=== PATIENT | male | born 1980 | race Hispanic/Latino ===

== ENCOUNTER 2021-03-23 06:12 | Inpatient (IN) | payer OTHER, SELFPAY ==
[2021-03-23] VITALS (13 sets, daily range): BP systolic 125–138; BP diastolic 74–94; PULSE 83–98; RESP 16–34; TEMP 36.1–37.5; O2SAT 90–97; BMI 59.1
--- NOTE | ~2021-03-23 | XR_ITS ---
EXAMINATION: XR chest 1V portable INDICATION: COVID 19 pneumonia TECHNIQUE: Portable AP chest at 0954 hours COMPARISON: 03/23/2021 FINDINGS: Cardiomegaly is noted. Diffuse opacities persist throughout all lung zones with slight impr ovement in the right upper lung zone. No definite pleural effusion or pneumothorax is identified. IMPRESSION: 1. Diffuse lung disease with mild interval improvement in the right upper lung zone, consistent with pneumonia and/or pulmonary edema and/or acute respiratory distress syndrome (ARDS). Reviewed, dictated and finalized at location A.
--- NOTE | ~2021-03-23 | XR_ITS ---
XR chest 1V portable 03/28/2021 05:44 Indication: Covid Infection. Dyspnea. Procedure: AP portable chest Comparison: 03/25/2021 Findings: Patchy ill-defined bilateral infiltrates. No pleural effusion. No pneumothorax. Heart size normal. No acute osseous abnormality. Impression: 1: Patchy bilateral infiltrates, consistent with pneumonia. Reviewed, dictated and finalized at location A. Impression: 1: Patchy bilateral infiltrates, consistent with pneumonia.
--- NOTE | ~2021-03-23 | XR_ITS ---
EXAMINATION: XR chest 1V portable INDICATION: Cough and fever TECHNIQUE: Portable AP chest at 0742 hours COMPARISON: None FINDINGS: There are diffuse airspace opacities throughout all lung zones, right greater than left. No definite pleural effusion or pneumothorax is identified. The heart size is normal. IMPRESSION: 1. Diffuse lung disease, consistent with pneumonia and/or pulmonary edema. Reviewed, dictated and finalized at location A.
--- NOTE | 2021-03-23 06:28 | PC.NURSE ---
Please call [facility] with updates [phone]
[2021-03-23 07:12] LABS: Hematocrit 41.5 % (42.0-52.0); Hemoglobin 13.3 g/dL (14.0-18.0); Mean Corpuscular Hemoglobin 28.5 pg (26-34); Mean Corpuscular Volume 88.9 fl (80-100); Mean Platelet Volume 11.2 fl (7.4-10.4); Platelet Count Result 252 k/mm3 (150-375); Red Blood Count 4.67 M/mm3 (4.6-6.20); Red Cell Distribution Width 15.8 % (11.5-14.5); White Blood Count 9.8 K/mm3 (4.5-10.0)
[2021-03-23] MEDS: SODIUM CHLORIDE 0.9% IV 1,000 ML 999 ML IV CONT (07:23)
[2021-03-23 07:25] LABS: Alanine Aminotransferase 59 U/L (4-50); Albumin Level 3.8 g/dL (3.5-5.1); Alkaline Phosphatase 57 U/L (38-126); Anion Gap 2 mmol/L (8-16); Aspartate Amino Transferase 56 U/L (17-59); Bilirubin,Total 0.9 mg/dL (0.2-1.3); Blood Urea Nitrogen 15 mg/dL (9-20); Calcium 8.2 mg/dL (8.4-10.2); Carbon Dioxide 36 mmol/L (22-30); Chloride 93 mmol/L (98-107); Estimated Glomerular Filt Rate > 60; Glucose 289 mg/dL (75-110); Potassium 4.7 mmol/L (3.4-5.0); Sodium 131 mmol/L (137-145)
[2021-03-23 07:27] LABS: Alveolar/Arterial O2 Gradient 111.5 mmHg; Base Excess ABG 3.2 mEq/l (+/-2.0); Fractional Inspired Oxygen 36 %; HCO3 ABG 30.1 mEq/l (22.0-26.0); Oxygen Saturation ABG 95.2 % (95.0-100.0); Oxyhemoglobin 93.4 % THb (90.0-100.0); PCO2 ABG 55.7 mmHg (35.0-45.0); PO2 ABG 80.6 mmHg (80.0-100.0); PO2 FiO2 Ratio Arterial Blood 2.24 %; Total Hemoglobin 13.7 g/dL (12.0-18.0); pH ABG 7.351 (7.350-7.450)
[2021-03-23 07:28] LABS: Device NASAL CANNULA; Modified Allen's Test Pass; Site Drawn LEFT RADIAL
[2021-03-23 07:37] LABS: INR 1.1; Prothrombin Time 14.4 Seconds (11.1-14.7)
[2021-03-23 07:38] LABS: Partial Thromboplastin Time 34.9 SECONDS (22.3-36.8)
[2021-03-23 07:45] LABS: Band Neutrophils Percent 11 % (0-6); Lymphocytes Absolute Manual 1.27 K/mm3 (1.1-4.5); Monocytes Absolute Manual 0.49 K/mm3 (0.1-0.90); Monocytes Percent Manual 5 % (3-9); Neutrophils Absolute Manual 8.03 K/mm3 (1.3-6.7); Neutrophils Percent Manual 71 % (46-73); Platelet Estimate Adequate (Adequate); Total Cells Counted 100
[2021-03-23 07:46] LABS: Atypical Lymphocytes Present
[2021-03-23 07:48] LABS: CRP 13.7 mg/dL (<1.0)
--- NOTE | 2021-03-23 07:54 | ED.FEVER ---
HPI - Fever General Chief Complaint: Fever Stated Complaint: fever Time Seen by Provider: 03/23/21 07:00 History of Present Illness HPI Narrative: Patient is a 41-year-old male who presents ER with fevers and chills. Ongoing over the last week and worsening over the last day. Feels very fatigued with walking. He has had a dry nonproductive cough. He works at a restaurant. Denies sick contacts. Patient reports he typically is sweaty but has been very diaphoretic over the last few days. He is not taking medications. He does not go to doctors so he does not have any medical issues. Patient found to be hypoxic on arrival and placed on supplemental oxygen. Related Data Home Medications Medication Instructions Recorded Confirmed No Home Medications 03/23/21 03/23/21 Allergies Allergy/AdvReac Type Severity Reaction Status Date / Time No Known Allergies Allergy Verified 03/23/21 09:51 Review of Systems Review of Systems: All systems reviewed & are unremarkable except as noted in HPI and below Constitutional: Constitutional: Reports chills, Reports fatigue and Reports fever(s) ENT: Denies nasal congestion and Denies sore throat Cardiovascular: Cardiovascular: Denies chest pain and Denies radiating jaw, neck or arm pain Respiratory: Respiratory: Denies chest congestion, Reports cough and Reports dyspnea Gastrointestinal: Gastrointestinal: Denies abdominal pain, Denies nausea and Denies vomiting PMF Past Medical History Medical History (Updated 03/23/21 @ 17:13 by Srikanth Ackerman MD) New onset type 2 diabetes mellitus (~03/23/21) Surgical History Surgical History No history of previous surgery Family History Family History Grandparent Diabetes mellitus Social History Social History (Updated 03/23/21 @ 13:03 by Tata Cage PA-C) Social History: Surrogate decision maker: Lori Sweeney, . Code status: Full code. Smoking status: Never smoker Alcohol intake: never Substance use: never Additional living arrangements comments: Patient lives in [place] with his . Additional occupation/education comments: Works at a local restaurant. Gender identity (if verbalized by the patient): Male Sexual Orientation (if Verbalized by the Patient): Straight or Heterosexual Spiritual care concerns: No Exam Narrative: Exam Narrative: GENERAL: Ill-appearing, morbidly obese, diaphoretic. HEAD: Normocephalic, atraumatic. EYES: PERRL and EOMI. ENT: Mucous membranes moist. CHEST: Clear to auscultation. No respiratory distress. HEART: Regular rate and rhythm. Normal peripheral pulses. ABDOMEN: Soft, nontender, nondistended. EXTREMITIES: Normal range of motion. No edema. NEURO: Alert and oriented x3. PSYCH: Normal mood and affect. Course SUPPORT SERVICES TECH/PA Physician Supervision Patient informed of results and severity of illness. Admit to hospitalist service. IV antibiotics and Decadron ordered. Vital Signs Vital signs: Vital Signs Respiratory Rate 34 H 03/23/21 06:34 Pulse Oximetry 97 03/23/21 06:34 Temperature 98.9 F 03/23/21 12:00 Pulse Rate 83 03/23/21 12:00 Respiratory Rate 30 H 03/23/21 12:00 Blood Pressure 138/78 03/23/21 12:00 Pulse Oximetry 95 03/23/21 12:59 MDM - Fever Lab Data Result diagrams: 03/23/21 07:05 03/23/21 07:06 Labs: Lab Results 03/23/21 03/23/21 03/23/21 Range/Units 07:04 07:05 07:05 WBC 9.8 (4.5-10.0) K/mm3 RBC 4.67 (4.6-6.20) M/mm3 Hgb 13.3 L (14.0-18.0) g/dL Hct 41.5 L (42.0-52.0) % MCV 88.9 (80-100) fl MCH 28.5 (26-34) pg MCHC 32.0 (32-36) g/dl RDW 15.8 H (11.5-14.5) % Plt Count 252 (150-375) k/mm3 MPV 11.2 H (7.4-10.4) fl Immature Gran % (Auto) Not Reportable Neut % (Auto) Not Reportable Lymph % (
[2021-03-23 08:20] LABS: NT Pro B Type Natriuretic Pept 345 pg/mL (5-100)
[2021-03-23] MEDS: DEXAMETHASONE SOD PHOS INJ 4 MG/ML VIAL 6 MG IV PUSH (08:44)
[2021-03-23 08:56] LABS: Hemoglobin A1C 8.9 % (<5.7)
[2021-03-23 08:57] LABS: Lactic Acid Reflex 0.9 mmol/L (0.7-2.1)
[2021-03-23 08:59] LABS: Add Urine Microscopic? YES; Appearance Urine Cloudy (Clear); Bacteria Urine Trace /hpf; Bilirubin Urine 1+ (Negative); Color Urine Amber (Yellow); Glucose Urine UA 1+ mg/dL (Negative); Hyaline Casts Urine 50+ /lpf; Ketones Urine Negative (Negative); Leukocyte Esterase Ur Negative LEU/UL (Negative); Mucus Urine Heavy /lpf; Nitrate Urine Negative (Negative); Protein Urine 3+ mg/dL (Negative); RBC Urine 0-2 /hpf (0-2); Specific Grav Ur 1.029 (1.001-1.035); Squamous Epithelial Cell Urine Few /hpf (Few)
[2021-03-23 09:05] LABS: Blood Urine Negative (Negative)
[2021-03-23] MEDS: LACTATED RINGERS 1,000 ML 125 ML IV CONT (09:33)
--- NOTE | 2021-03-23 09:44 | ADMGEN ---
This patient, Vern Sweeney, was admitted to [facility] Surg Room 329-01. Patient/family oriented to hospital policies and general routines including ID bracelet, bed and alarms, visiting hours, pain management, procedures, bathroom and other care routines, personal items, smoking policy, room service/diet, and visiting hours. Information on how to activate the Rapid Response Team has been discussed. Patient/Family are encouraged to report perceived risks to care and to ask questions if they do not understand what they are told or what they should do.
[2021-03-23] MEDS: INSULIN ASPART (*BKC) 100 UNITS/ML SUB-Q ×2 (12:03→17:44)
[2021-03-23 12:08] LABS: Glucose Point of Care 201 (65-105)
--- NOTE | 2021-03-23 13:00 | PM.IMHP ---
H&P: HPI History of Present Illness Date/Time: 03/23/21 13:00 Chief Complaint: Fever. Narrative: This is a 41-year-old male with no known medical problems who presented to the emergency department earlier this morning via private vehicle from home for evaluation of a fever. He has not felt well for nearly 1 week with symptoms to include generalized malaise, body aches, fatigue, fever, chills, sweats, and a dry nonproductive cough. He has also noticed a decrease in his sense of smell and taste. His symptoms seem to have gotten worse over the past 24 hours, prompting him to come to the ED. Chest x-ray shows diffuse lung disease consistent with pneumonia and he is being admitted in this setting. 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 He has not received a COVID vaccination. He has no known sick contacts. No chest pain, pleuritic pain, shortness of breath, nausea, vomiting, or diarrhea. Review of Systems Review of Systems: Narrative: Twelve systems were reviewed with pertinent positives and negatives as per HPI. He has progressively gained weight over the years and is not certain how much he weighs now. At 1 point time he was told his blood pressure was a bit high and he changed his eating habits, lost some weight, and was able to avoid being placed on medications. He has no known history of diabetes and denies blurry vision, polydipsia, and polyuria. No orthopnea, PND, or significant lower extremity edema. Denies daytime somnolence. No history of venous thromboembolism. Except as documented, all other systems were reviewed and are negative. [facility] Past Medical History Medical History New onset type 2 diabetes mellitus (~03/23/21) Surgical History Surgical History No history of previous surgery Family History Family History Grandparent Diabetes mellitus Social History Social History Social History: Surrogate decision maker: Lroi Sweeney, . Code status: Full code. Smoking status: Never smoker Alcohol intake: never Substance use: never Additional living arrangements comments: Patient lives in [place] with his . Additional occupation/education comments: Works at a local [employer]. Gender identity (if verbalized by the patient): Male Sexual Orientation (if Verbalized by the Patient): Straight or Heterosexual Spiritual care concerns: No Meds Home Medications and Allergies Home Medications Medication Instructions Recorded Confirmed Type No Home Medications 03/23/21 03/23/21 History Allergies Allergy/AdvReac Type Severity Reaction Status Date / Time No Known Allergies Allergy Verified 03/23/21 09:51 Vital Signs Vital Signs - 24 hr 03/23/21 06:34 03/23/21 06:44 03/23/21 08:44 Temperature 99.5 F 98.1 F Pulse Rate 98 86 Respiratory Rate 34 H 34 H 18 Blood Pressure 136/94 H Pulse Oximetry 97 96 03/23/21 09:20 03/23/21 09:43 03/23/21 10:00 Temperature 98.4 F Pulse Rate 84 92 92 Respiratory Rate 18 32 H 32 H Blood Pressure 138/78 125/76 Pulse Oximetry 96 95 95 03/23/21 12:59 Temperature Pulse Rate Respiratory Rate Blood Pressure Pulse Oximetry 95 Exam Narrative: Exam Narrative: General: Morbidly obese male sitting at the side of the bed in no acute distress. He is nontoxic in appearance. Weight: 203.5 kilograms. BMI: 59.2. HEENT: PERRL, EOMI. Sclerae anicteric. Oral mucosa moist. Oropharynx is crowded and poorly visualized. Neck: Supple. Exam difficult due to neck circumference but no obvious JVD. Respiratory: Respirations appear to be nonlabored. He is speaking in full sentences. Diminished breath sounds due
[2021-03-23 17:39] LABS: Glucose Point of Care 319 (65-105)
[2021-03-23 19:24] LABS: SARS-CoV-2 RNA PCR Positive
[2021-03-23] MEDS: ALBUTEROL SULFATE NEB 2.5 MG/0.5 ML INH 5 MG INHALATION (21:12)
[2021-03-23] MEDS: IPRATROPIUM BR 0.02% INH SOLN 0.5 MG/2.5 ML VIAL INHALATION (21:12)
[2021-03-23 21:25] LABS: Glucose Point of Care 354 (65-105)
[2021-03-23 21:43] LABS: Alanine Aminotransferase 54 U/L (4-50); Estimated CRCL calculation 257 ml/min; Estimated Glomerular Filt Rate > 60
[2021-03-23 21:47] LABS: INR 1.6; Prothrombin Time 19.5 Seconds (11.1-14.7)
[2021-03-23] MEDS: REMDESIVIR 200 MG/NS 250 ML 200 MG/250 ML BAG 250 MG IVPB (22:29)
[2021-03-23] MEDS: guaiFENesin 12 HR 600 MG TABCR 1200 MG PO (22:29)
[2021-03-24] VITALS (14 sets, daily range): BP systolic 112–141; BP diastolic 56–83; PULSE 66–90; RESP 18–28; TEMP 36.1–36.9; O2SAT 91–98
[2021-03-24] MEDS: ALBUTEROL SULFATE NEB 2.5 MG/0.5 ML INH 5 MG INHALATION ×2 (01:54→08:11)
[2021-03-24] MEDS: IPRATROPIUM BR 0.02% INH SOLN 0.5 MG/2.5 ML VIAL INHALATION ×2 (01:54→08:11)
[2021-03-24 06:00] LABS: Hematocrit 40.3 % (42.0-52.0); Hemoglobin 12.6 g/dL (14.0-18.0); Mean Corpuscular HGB Conc 31.3 g/dl (32-36); Mean Corpuscular Hemoglobin 28.6 pg (26-34); Mean Corpuscular Volume 91.6 fl (80-100); Mean Platelet Volume 12.2 fl (7.4-10.4); Platelet Count Result 136 k/mm3 (150-375); Red Cell Distribution Width 15.3 % (11.5-14.5); White Blood Count 8.2 K/mm3 (4.5-10.0)
[2021-03-24 06:45] LABS: Alanine Aminotransferase 58 U/L (4-50); Albumin Level 3.6 g/dL (3.5-5.1); Alkaline Phosphatase 53 U/L (38-126); Anion Gap 3 mmol/L (8-16); Aspartate Amino Transferase 45 U/L (17-59); Bilirubin,Total 0.8 mg/dL (0.2-1.3); Blood Urea Nitrogen 15 mg/dL (9-20); Calcium 8.4 mg/dL (8.4-10.2); Carbon Dioxide 36 mmol/L (22-30); Chloride 96 mmol/L (98-107); Estimated CRCL calculation 303 ml/min; Estimated Glomerular Filt Rate > 60; Glucose 246 mg/dL (75-110); Lactate Dehydrogenase 824 U/L (313-618); Magnesium 2.3 mg/dL (1.6-2.3); Sodium 135 mmol/L (137-145)
[2021-03-24 06:58] LABS: Potassium 4.8 mmol/L (3.4-5.0)
[2021-03-24 07:06] LABS: Thyroid Stimulating Hormone Reflex 0.864 uIU/mL (0.465-4.68)
[2021-03-24 08:42] LABS: Glucose Point of Care 243 (65-105)
[2021-03-24] MEDS: INSULIN ASPART (*BKC) 100 UNITS/ML SUB-Q ×3 (09:02→17:11)
[2021-03-24] MEDS: DEXAMETHASONE SOD PHOS INJ 4 MG/ML VIAL 6 MG IV PUSH (09:03)
[2021-03-24] MEDS: guaiFENesin 12 HR 600 MG TABCR 1200 MG PO ×2 (09:03→21:25)
[2021-03-24] MEDS: ENOXAPARIN 40 MG/0.4 ML SYRINGE SUB-Q (09:03)
[2021-03-24 12:10] LABS: Glucose Point of Care 306 (65-105)
--- NOTE | 2021-03-24 16:28 | PM.IMPN ---
Progress Note: A&P Assessment and Plan (1) Acute respiratory failure with hypoxia: Code(s): J96.01 - Acute respiratory failure with hypoxia Status: Acute Assessment and Plan: improving now on 4 L oxygen nasal cannula was on no oxygen at home prior to admission found to be positive for COVID see treatment noted below in plan (2) Multifocal pneumonia: Code(s): J18.9 - Pneumonia, unspecified organism Status: Acute Assessment and Plan: found to be positive for COVID see treatment noted below in plan (3) New onset type 2 diabetes mellitus: Onset Date: ~03/23/21 Code(s): E11.9 - Type 2 diabetes mellitus without complications Status: Acute Assessment and Plan: glucose levels may likely rise due to steroids now new onset type 2 diabetic with a hemoglobin A1c of 8.9%. start sliding scale insulin recommend metformin on discharge. meet with the coding educator and dietitian as an outpatient. Lifestyle changes including healthier diet and initiation of an exercise program was discussed to help promote weight loss and he seems motivated. (4) Person under investigation for COVID-19: Code(s): Z20.822 - Contact with and (suspected) exposure to COVID-19 Status: Acute Assessment and Plan: found to be positive for COVID see treatment noted below in plan (5) Morbid obesity: Code(s): E66.01 - Morbid (severe) obesity due to excess calories Status: Acute Assessment and Plan: low fat and heart healthy diet consider PT OT continue to monitor glucose, especially due to steroids now consult nutrition and dietitian as patient allows continue to encourage frequent ambulation and activity (6) Pneumonia due to COVID-19 virus: Code(s): U07.1 - COVID-19; J12.82 - Pneumonia due to coronavirus disease 2019 Status: Acute Assessment and Plan: fever and sweats and body aches resolved. dry cough persists, and diminished lung sounds hypoxic on arrival to the ER, with SpO2 reportedly between 61 and 66%. continues to require 4 L today nasal cannula Chest x-ray demonstrated multilobar pneumonia concerning for COVID-19 on March 23 repeating chest x-ray tomorrow continue isolation + SARS-CoV-2 by PCR. azithromycin and ceftriaxone were discontinued with a positive COVID test started on dexamethasone and IV Remdisvimir, 2nd dose today monitoring liver function, LDH, ferritin and other labs also on albuterol nebs, DuoNebs, Mucinex, steroids using pulmonary trumpet/ Cornet Subjective Date/time seen: 03/24/21 16:28 Mr. Sweeney is feeling better today. He is a patient that does not like being in the hospital, but does understand that we are treating him for COVID to improve his pneumonia and O2 requirements and hope to be then discharged. He has encouraged his to get the COVID vaccination as soon as possible And reports that she is working on that. He has 2 young children that are not vaccine age yet. He is still requiring 4 L of oxygen per nasal cannula. Nursing staff checked his oxygen requirements this morning and his SpO2 dropped without 4 L on. I have enlmonary functionraged him to continue his ambulation in his room. I also encouraged him to use his coronary at every 15-20 minutes to improve his ventilation and pulmonary function. He is sitting upright on his hospital couch at this moment. He is wanting to take a shower, I informed nursing staff to assist him. Monitoring his liver function while he is on IV antiviral medications and will continue Remdesvimir for a full course, tonight will be dosed 2 of 5. Patient was informed of the plan and understands. Review of Systems Review of Systems: Narrative: morbid obesity All systems reviewed & are unremarkable except as noted in HPI and below Constitutional: Constitutional: Reports as per HPI, Reports chills, Reports fatigue and Reports fever(s) Eyes: Eye
[2021-03-24 17:09] LABS: Glucose Point of Care 308 (65-105)
[2021-03-24] MEDS: REMDESIVIR 100 MG/NS 250 ML 100 MG/250 ML BAG 250 MG IVPB (21:25)
[2021-03-24 21:39] LABS: Glucose Point of Care 282 (65-105)
[2021-03-25] VITALS (15 sets, daily range): BP systolic 120–139; BP diastolic 62–85; PULSE 60–101; RESP 20; TEMP 36.4–37.2; O2SAT 92–100
[2021-03-25] MEDS: IPRATROPIUM BR 0.02% INH SOLN 0.5 MG/2.5 ML VIAL INHALATION ×4 (02:12→21:06)
[2021-03-25] MEDS: ALBUTEROL SULFATE NEB 2.5 MG/0.5 ML INH 5 MG INHALATION ×4 (02:12→21:06)
[2021-03-25 06:24] LABS: INR 1.1; Prothrombin Time 14.3 Seconds (11.1-14.7)
[2021-03-25 06:29] LABS: Alanine Aminotransferase 49 U/L (4-50); Estimated CRCL calculation 254 ml/min; Estimated Glomerular Filt Rate > 60
[2021-03-25 08:03] LABS: Glucose Point of Care 188 (65-105)
[2021-03-25] MEDS: guaiFENesin 12 HR 600 MG TABCR 1200 MG PO ×2 (09:33→21:27)
[2021-03-25] MEDS: ENOXAPARIN 40 MG/0.4 ML SYRINGE SUB-Q (09:33)
[2021-03-25] MEDS: DEXAMETHASONE SOD PHOS INJ 4 MG/ML VIAL 6 MG IV PUSH (09:33)
[2021-03-25 12:08] LABS: Glucose Point of Care 262 (65-105)
[2021-03-25] MEDS: INSULIN ASPART (*BKC) 100 UNITS/ML SUB-Q ×3 (13:10→22:47)
--- NOTE | 2021-03-25 15:22 | PM.IMPN ---
Progress Note: A&P Assessment and Plan (1) Acute respiratory failure with hypoxia: Code(s): J96.01 - Acute respiratory failure with hypoxia Status: Acute Assessment and Plan: improving now on 2 L oxygen nasal cannula, down from 4 L the day prior was on no oxygen at home prior to admission found to be positive for COVID see treatment noted below in plan (2) Multifocal pneumonia: Code(s): J18.9 - Pneumonia, unspecified organism Status: Acute Assessment and Plan: found to be positive for COVID todays CXR showed improvements see treatment noted below in plan (3) New onset type 2 diabetes mellitus: Onset Date: ~03/23/21 Code(s): E11.9 - Type 2 diabetes mellitus without complications Status: Acute Assessment and Plan: glucose levels >200 may be due to steroids or due to undiagnosed diabetes new onset type 2 diabetic with a hemoglobin A1c of 8.9%. started sliding scale insulin, moderate SSI was not enought and glucose levels were still >200, changed to higher dosing SSI recommend metformin prior to and also at discharge. consult with the music educator and dietitian Lifestyle changes including healthier diet and initiation of an exercise program was discussed to help promote weight loss and he seems motivated. (4) Person under investigation for COVID-19: Code(s): Z20.822 - Contact with and (suspected) exposure to COVID-19 Status: Acute Assessment and Plan: found to be positive for COVID see treatment noted below in plan (5) Morbid obesity: Code(s): E66.01 - Morbid (severe) obesity due to excess calories Status: Acute Assessment and Plan: low fat and heart healthy diet consider PT OT continue to monitor glucose, especially due to steroids now consult for fur glazer start metformin consult nutrition and dietitian as patient allows continue to encourage frequent ambulation and activity (6) Pneumonia due to COVID-19 virus: Code(s): U07.1 - COVID-19; J12.82 - Pneumonia due to coronavirus disease 2018 Status: Acute Assessment and Plan: fever and sweats and body aches resolved. dry cough persists, and diminished lung sounds hypoxic on arrival to the ER, with SpO2 reportedly between 61 and 66%. continues to require 2 L today nasal cannula Chest x-ray demonstrated multilobar pneumonia concerning for COVID-19 on March 23, today's CXR improved. continue isolation + SARS-CoV-2 by PCR. azithromycin and ceftriaxone were discontinued with a positive COVID test started on dexamethasone and IV Remdisvimir, 3rd dose was today monitoring liver function, LDH, ferritin and other labs - repeated tomorrow morning also on albuterol nebs, DuoNebs, Mucinex, steroids using pulmonary trumpet/ Cornet Additional Plan The patient presents today with a week of symptoms to include fever, sweats, body aches, anosmia, dysgeusia, and dry cough. He was hypoxic on arrival to the ER, with SpO2 reportedly between 61 and 66%. Chest x-ray demonstrated multilobar pneumonia concerning for COVID-19 and he has been placed in isolation pending SARS-CoV-2 by PCR. He has been started on azithromycin and ceftriaxone in the interim. He has also a new onset type 2 diabetic with a hemoglobin A1c of 8.9%. At this time we will start sliding scale insulin and recommend metformin on discharge. He will need to meet with the music educator and dietitian. Subjective Date/time seen: 03/25/21 15:22 Vern is still Oxygen dependent this afternoon. He is frustrated with his progress and prolonged hospitalization. He is currently requiring 2L oxygen, which is improved from the 4L O2 yesterday. Ordered home O2 study for tomorrow morning. Hoping patient can be weaned from O2 and discharged on Monday upon completion of the Remdesvimir that day. Prior to COVID, he did not require any supplemental oxygen. CXR was slightly improved today. Continue
[2021-03-25 17:21] LABS: Glucose Point of Care 282 (65-105)
[2021-03-25] MEDS: REMDESIVIR 100 MG/NS 250 ML 100 MG/250 ML BAG 250 MG IVPB (21:26)
[2021-03-25 22:12] LABS: Glucose Point of Care 296 (65-105)
--- NOTE | 2021-03-25 22:16 | PC.NURSE ---
Patient blood glucose at bedtime was 296. I spoke with Barbara Lemus by phone who ordered 4 units of Novolog to be given
[2021-03-26] VITALS (15 sets, daily range): BP systolic 129–159; BP diastolic 72–90; PULSE 62–96; RESP 18–20; TEMP 36.2–36.6; O2SAT 91–96; BMI 49.4
[2021-03-26] MEDS: ALBUTEROL SULFATE NEB 2.5 MG/0.5 ML INH 5 MG INHALATION ×2 (02:43→07:57)
[2021-03-26] MEDS: IPRATROPIUM BR 0.02% INH SOLN 0.5 MG/2.5 ML VIAL INHALATION ×2 (02:43→07:57)
[2021-03-26 06:28] LABS: Hematocrit 39.5 % (42.0-52.0); Hemoglobin 12.5 g/dL (14.0-18.0); Mean Corpuscular HGB Conc 31.6 g/dl (32-36); Mean Corpuscular Hemoglobin 28.5 pg (26-34); Mean Platelet Volume 10.8 fl (7.4-10.4); Platelet Count Result 308 k/mm3 (150-375); Red Blood Count 4.39 M/mm3 (4.6-6.20); Red Cell Distribution Width 14.8 % (11.5-14.5); White Blood Count 9.8 K/mm3 (4.5-10.0)
[2021-03-26 06:38] LABS: INR 1.1; Prothrombin Time 14.4 Seconds (11.1-14.7)
[2021-03-26 06:42] LABS: Alanine Aminotransferase 43 U/L (4-50); Albumin Level 3.4 g/dL (3.5-5.1); Alkaline Phosphatase 53 U/L (38-126); Anion Gap 0 mmol/L (8-16); Aspartate Amino Transferase 30 U/L (17-59); Bilirubin,Total 0.5 mg/dL (0.2-1.3); Blood Urea Nitrogen 15 mg/dL (9-20); Calcium 8.8 mg/dL (8.4-10.2); Carbon Dioxide 37 mmol/L (22-30); Chloride 97 mmol/L (98-107); Estimated CRCL calculation 230 ml/min; Estimated Glomerular Filt Rate > 60; Glucose 193 mg/dL (75-110); Lactate Dehydrogenase 569 U/L (313-618); Potassium 4.2 mmol/L (3.4-5.0); Sodium 134 mmol/L (137-145)
[2021-03-26 08:02] LABS: Glucose Point of Care 183 (65-105)
[2021-03-26] MEDS: ENOXAPARIN 40 MG/0.4 ML SYRINGE SUB-Q ×2 (09:10→20:58)
[2021-03-26] MEDS: guaiFENesin 12 HR 600 MG TABCR 1200 MG PO ×2 (09:10→20:58)
[2021-03-26] MEDS: DEXAMETHASONE SOD PHOS INJ 4 MG/ML VIAL 6 MG IV PUSH (09:10)
[2021-03-26] MEDS: metFORMIN HCL 500 MG TABLET PO ×2 (09:10→18:09)
--- NOTE | 2021-03-26 10:48 | PM.IMPN ---
Progress Note: A&P Assessment and Plan (1) Pneumonia due to COVID-19 virus: Code(s): U07.1 - COVID-19; J12.82 - Pneumonia due to coronavirus disease 2018 Status: Acute Assessment and Plan: Patient presents with SOB, fever; CXR shows diffuse lung disease consistent with pneumonia; COVID positive 03/23/21. Continue dexamethasone (day 4); remdesivir (day 4). Continue supplemental O2 and wean as tolerated to keep O2 saturations > 90%. Tolerating room air today for first time. Continue supportive care with Tylenol for fevers, mucinex, incentive spirometer. Change scheduled nebulizers to PRN albuterol MDI. Increased Lovenox to BID for DVT ppx. If remains tolerating room air overnight, anticipate likely discharge tomorrow after 5th dose of Remdesivir. Patient eager for discharge. (2) Acute respiratory failure with hypoxia: Code(s): J96.01 - Acute respiratory failure with hypoxia Status: Acute Assessment and Plan: Secondary to above. Weaned down to room air today. (3) New onset type 2 diabetes mellitus: Onset Date: ~03/23/21 Code(s): E11.9 - Type 2 diabetes mellitus without complications Status: Acute Assessment and Plan: Glucose levels elevated; although steroids could be contributing, Hgb A1c of 8.9% argues ongoing elevated glucose levels consistent with new diagnosis DM. Started metformin today. Continue to monitor with accu-cheks and adjust treatment as needed, cover with SSI. Lifestyle changes including healthier diet and initiation of an exercise program was discussed to help promote weight loss. (4) Morbid obesity: Code(s): E66.01 - Morbid (severe) obesity due to excess calories Status: Chronic Assessment and Plan: Lifestyle modifications encouraged. Subjective Date/time seen: 03/26/21 1100 Interval history: Mr. Sweeney is a 41yo M admitted with acute hypoxic respiratory failure secondary to COVID pneumonia. He reports feeling well today. Denies chest pain or shortness of breath. Tolerating meals without nausea or vomiting. Review of Systems Review of Systems: All systems reviewed & are unremarkable except as noted in HPI and below Exam Narrative: Exam Narrative: General: Morbidly obese male sitting on edge of bed in no acute distress. HEENT: Normocephalic, EOMI. Sclerae anicteric. Oral mucosa moist. Neck: Supple. Respiratory: Diminished breath sounds throughout, respirations even and nonlabored. Cardiovascular: Regular rate and rhythm. Gastrointestinal: Abdomen is soft, morbidly obese, nontender, and nondistended with positive bowel sounds. Skin: Warm and dry. Extremities: Peripheral pulses intact. No edema or pain to palpation. Neurological: Awake and alert. Answering questions appropriately. No focal neurologic deficits noted. Psychiatric: Pleasant and cooperative with normal mood and affect. Judgment and insight intact. Objective Data Vital Signs Vital Signs: Last Vital Signs Temp 97.8 F 03/26/21 08:00 Pulse 72 03/26/21 11:35 Resp 20 03/26/21 08:12 BP 141/80 H 03/26/21 08:00 Pulse Ox 93 03/26/21 11:35 Intake/Output Intake/Output: Intake & Output 03/23/21 03/24/21 03/25/21 03/26/21 23:59 23:59 23:59 23:59 Intake Total 2450 2530 2180 1600 Balance 2450 2530 2180 1600 Meds/Results Medications: Active Medications Generic Name Dose Route Start Last Admin Trade Name Freq PRN Reason Stop Dose Admin Acetaminophen 650 mg 03/23/21 08:27 Acetaminophen 325 Mg Tablet PO Q4H PRN Mild Pain (1-3) or Fever Albuterol 5 mg 03/23/21 14:00 03/26/21 07:57 Albuterol Sulfate Neb 2.5 Mg/0.5 Ml Inh INHALATION 5 mg Q6HRT OSMIN Administration Dexamethasone Sodium Phosphate 6 mg 03/24/21 09:00 03/26/21 09:10 Dexam
--- NOTE | 2021-03-26 11:47 | HOMEO2EVAL ---
Evaluation was performed at [facility] Home Oxygen Evaluation RC: Home Oxygen (O2) Evaluation Start: 03/26/21 07:25 Freq: ONCE Status: Active Protocol: RPE Activity Type Activity Date Activity User E-Sign Co-Sign Detail Recorded Client Recorded Date Recorded By Document 03/26/21 11:25 GABI [email or web address] 03/26/21 11:47 GABI Document 03/26/21 11:30 GABI [email or web address] 03/26/21 11:47 GABI Document 03/26/21 11:35 GABI [email or web address] 03/26/21 11:47 GABI 03/26/21 03/26/21 03/26/21 11:25 11:30 11:35 Home O2 Evaluation Test Phase Resting Exercise Resting Oxygen Delivery Room Air Room Air Room Air Pulse Oximetry (90-100 %) 92 91 93 Pulse Rate (60-100 beats/min) 66 96 72 Home Oxygen Evaluation Comments Walked from No home O2 windows to needed at this bathroom x 4. time No SOB. Treatment Charges O2 Evaluation - Inpatient
--- NOTE | 2021-03-26 11:47 | PCRCNOTE ---
Home O2 Eval done, No home O2 needed at this time, RN notified.
[2021-03-26 12:36] LABS: Glucose Point of Care 210 (65-105)
[2021-03-26] MEDS: INSULIN ASPART (*BKC) 100 UNITS/ML SUB-Q ×2 (12:58→18:09)
--- NOTE | 2021-03-26 13:50 | PCPTNOTE ---
Attempted PT eval. Pt refused therapy and walked indep in room. Spoke w/ Dr Borrego, who agreed w/ DC PT.
[2021-03-26 17:27] LABS: Glucose Point of Care 229 (65-105)
[2021-03-26] MEDS: REMDESIVIR 100 MG/NS 250 ML 100 MG/250 ML BAG 250 MG IVPB (20:59)
[2021-03-26 22:34] LABS: Glucose Point of Care 236 (65-105)
[2021-03-27] VITALS (8 sets, daily range): BP systolic 147–193; BP diastolic 81–110; PULSE 57–65; RESP 18–20; TEMP 36.2–37.2; O2SAT 90–95
[2021-03-27 06:13] LABS: Potassium 4.1 mmol/L (3.4-5.0)
[2021-03-27 06:15] LABS: Alanine Aminotransferase 40 U/L (4-50); Albumin Level 3.5 g/dL (3.5-5.1); Alkaline Phosphatase 51 U/L (38-126); Anion Gap 5 mmol/L (8-16); Aspartate Amino Transferase 24 U/L (17-59); Bilirubin,Total 0.6 mg/dL (0.2-1.3); Blood Urea Nitrogen 14 mg/dL (9-20); Carbon Dioxide 32 mmol/L (22-30); Chloride 99 mmol/L (98-107); Estimated CRCL calculation 244 ml/min; Estimated Glomerular Filt Rate > 60; Glucose 163 mg/dL (75-110); Sodium 136 mmol/L (137-145)
[2021-03-27 08:35] LABS: Glucose Point of Care 132 (65-105)
[2021-03-27] MEDS: DEXAMETHASONE SOD PHOS INJ 4 MG/ML VIAL 6 MG IV PUSH (09:10)
[2021-03-27] MEDS: guaiFENesin 12 HR 600 MG TABCR 1200 MG PO ×2 (09:10→21:03)
[2021-03-27] MEDS: metFORMIN HCL 500 MG TABLET PO ×2 (09:10→17:45)
[2021-03-27] MEDS: ENOXAPARIN 40 MG/0.4 ML SYRINGE SUB-Q ×2 (09:10→21:04)
--- NOTE | 2021-03-27 10:29 | PM.IMPN ---
Progress Note: A&P Assessment and Plan (1) Pneumonia due to COVID-19 virus: Code(s): U07.1 - COVID-19; J12.82 - Pneumonia due to coronavirus disease 2018 Status: Acute Assessment and Plan: Patient presents with SOB, fever; CXR shows diffuse lung disease consistent with pneumonia; COVID positive 03/23/21. Continue dexamethasone (day 4); remdesivir (day 4). Continue supplemental O2 and wean as tolerated to keep O2 saturations > 90%. Tolerating room air today for first time. Continue supportive care with Tylenol for fevers, mucinex, incentive spirometer. Change scheduled nebulizers to PRN albuterol MDI. Increased Lovenox to BID for DVT ppx. Today is the last dose of Ramdesifir, will repeat chest x-ray and stays okay will discharge tomorrow. (2) Acute respiratory failure with hypoxia: Code(s): J96.01 - Acute respiratory failure with hypoxia Status: Acute Assessment and Plan: Secondary to above. Weaned down to room air today. (3) New onset type 2 diabetes mellitus: Onset Date: ~03/23/21 Code(s): E11.9 - Type 2 diabetes mellitus without complications Status: Acute Assessment and Plan: Glucose levels elevated; although steroids could be contributing, Hgb A1c of 8.9% argues ongoing elevated glucose levels consistent with new diagnosis DM. Started metformin today. Continue to monitor with accu-cheks and adjust treatment as needed, cover with SSI. Lifestyle changes including healthier diet and initiation of an exercise program was discussed to help promote weight loss. (4) Morbid obesity: Code(s): E66.01 - Morbid (severe) obesity due to excess calories Status: Chronic Assessment and Plan: Lifestyle modifications encouraged. Additional Plan The patient presents today with a week of symptoms to include fever, sweats, body aches, anosmia, dysgeusia, and dry cough. He was hypoxic on arrival to the ER, with SpO2 reportedly between 61 and 66%. Chest x-ray demonstrated multilobar pneumonia concerning for COVID-19 and he has been placed in isolation pending SARS-CoV-2 by PCR. He has been started on azithromycin and ceftriaxone in the interim. He has also a new onset type 2 diabetic with a hemoglobin A1c of 8.9%. At this time we will start sliding scale insulin and recommend metformin on discharge. He will need to meet with the museum educator and dietitian. Possible discharge in the morning. Subjective Date/time seen: 03/27/21 10:29 Interval history: Mr. Sweeney is a 41yo M admitted with acute hypoxic respiratory failure secondary to COVID pneumonia. Patient was seen during morning rounds today. Patient is feeling much better today. Decreased shortness of breath. No chest pain. Mood stable. Review of Systems Review of Systems: All systems reviewed & are unremarkable except as noted in HPI and below Constitutional: Constitutional: Reports as per HPI, Reports chills, Reports fatigue, Reports fever(s) and Denies headache(s) Eyes: Eyes: Reports as per HPI, Denies exophthalmos, Denies diplopia, Denies floaters and Denies loss of peripheral vision ENT: Reports as per HPI, Reports Normal hearing present, Denies headache(s), Denies nasal congestion and Denies sore throat Cardiovascular: Cardiovascular: Reports as per HPI, Denies chest pain, Denies chest pain at rest, Denies chest pain with activity, Denies radiating jaw, neck or arm pain, Reports dyspnea and Reports dyspnea on exertion Respiratory: Respiratory: Reports as per HPI, Denies chest congestion, Reports cough, Denies hemoptysis, Denies pain on inspiration, Denies pain with cough, Reports dyspnea, Reports dyspnea on exertion and Reports other ( Very diminished throughout) Gastrointestinal: Gastrointestinal: Reports
[2021-03-27 11:15] LABS: Hemoglobin 13.4 g/dL (14.0-18.0); Mean Corpuscular HGB Conc 31.9 g/dl (32-36); Mean Corpuscular Hemoglobin 28.3 pg (26-34); Mean Corpuscular Volume 88.6 fl (80-100); Mean Platelet Volume 10.7 fl (7.4-10.4); Platelet Count Result 326 k/mm3 (150-375); Red Blood Count 4.74 M/mm3 (4.6-6.20); Red Cell Distribution Width 14.9 % (11.5-14.5); White Blood Count 11.6 K/mm3 (4.5-10.0)
[2021-03-27 11:32] LABS: Alanine Aminotransferase 43 U/L (4-50); Albumin Level 3.7 g/dL (3.5-5.1); Alkaline Phosphatase 52 U/L (38-126); Anion Gap 2 mmol/L (8-16); Aspartate Amino Transferase 38 U/L (17-59); Bilirubin,Total 0.9 mg/dL (0.2-1.3); Blood Urea Nitrogen 13 mg/dL (9-20); Calcium 9.1 mg/dL (8.4-10.2); Carbon Dioxide 35 mmol/L (22-30); Chloride 98 mmol/L (98-107); Estimated CRCL calculation 212 ml/min; Estimated Glomerular Filt Rate > 60; Glucose 145 mg/dL (75-110); Potassium 4.1 mmol/L (3.4-5.0); Sodium 135 mmol/L (137-145)
[2021-03-27 13:07] LABS: Glucose Point of Care 211 (65-105)
[2021-03-27] MEDS: INSULIN ASPART (*BKC) 100 UNITS/ML SUB-Q (13:23)
[2021-03-27 17:40] LABS: Glucose Point of Care 194 (65-105)
[2021-03-27] MEDS: amLODIPine BESYLATE 5 MG TABLET PO (21:02)
[2021-03-27] MEDS: REMDESIVIR 100 MG/NS 250 ML 100 MG/250 ML BAG 250 MG IVPB (21:04)
[2021-03-27 22:08] LABS: Glucose Point of Care 165 (65-105)
[2021-03-28 03:50] VITALS: BP 151/84; PULSE 68; RESP 20; TEMP 36.7; O2SAT 93
[2021-03-28 08:00] VITALS: BP 150/92; PULSE 69; RESP 18; TEMP 36.7; O2SAT 92
[2021-03-28 08:00] LABS: Glucose Point of Care 114 (65-105)
[2021-03-28] MEDS: metFORMIN HCL 500 MG TABLET PO (08:15)
[2021-03-28] MEDS: amLODIPine BESYLATE 5 MG TABLET PO (08:15)
--- NOTE | 2021-03-28 08:47 | PM.DS ---
DS: Admitting Diagnosis Admitting Diagnosis Admitting Diagnosis: 1. COVID pneumonia 2. New onset diabetes 3. Obesity DS: Discharge Diagnosis Discharge Diagnosis (1) Pneumonia due to COVID-19 virus: Code(s): U07.1 - COVID-19; J12.82 - Pneumonia due to coronavirus disease 2018 Status: Acute Assessment and Plan: Patient presents with SOB, fever; CXR shows diffuse lung disease consistent with pneumonia; COVID positive 03/23/21. Continue dexamethasone (day 4); remdesivir (day 4). Continue supplemental O2 and wean as tolerated to keep O2 saturations > 90%. Tolerating room air today for first time. Continue supportive care with Tylenol for fevers, mucinex, incentive spirometer. Change scheduled nebulizers to PRN albuterol MDI. Increased Lovenox to BID for DVT ppx. Today is the last dose of Ramdesifir, will repeat chest x-ray and stays okay will discharge tomorrow. (2) Acute respiratory failure with hypoxia: Code(s): J96.01 - Acute respiratory failure with hypoxia Status: Acute Assessment and Plan: Secondary to above. Weaned down to room air today. (3) New onset type 2 diabetes mellitus: Onset Date: ~03/23/21 Code(s): E11.9 - Type 2 diabetes mellitus without complications Status: Acute Assessment and Plan: Glucose levels elevated; although steroids could be contributing, Hgb A1c of 8.9% argues ongoing elevated glucose levels consistent with new diagnosis DM. Started metformin today. Continue to monitor with accu-cheks and adjust treatment as needed, cover with SSI. Lifestyle changes including healthier diet and initiation of an exercise program was discussed to help promote weight loss. (4) Morbid obesity: Code(s): E66.01 - Morbid (severe) obesity due to excess calories Status: Chronic Assessment and Plan: Lifestyle modifications encouraged. DS: Summary Hospital Course Hospital Course: 41 years old male was admitted complained of any shortness of breath. Patient was found to have COVID pneumonia. Physical examination shows patient has decreased air entry. Chest x-ray confirmed COVID pneumonia. Patient was also diagnosed with new onset of diabetes. Patient was given diabetic teaching, sliding scale insulin and p.o. metformin was started. Patient was given remdesifir and steroids. Patient condition improved. Today patient is feeling better so patient was discharged home in stable condition. Time spent discussing smoking cessation with patient: 3 to 10 minutes Status at Discharge Cognitive/behavioral status at discharge: Stable Functional status at discharge: independent ambulation Overall status at discharge: patient is back to baseline Time Spent with Patient Time attestation: Total time spent providing and/or coordinating discharge services: Time spent: Less than 30 minutes Exam Narrative: Exam Narrative: General: Morbidly obese male sitting on edge of bed in no acute distress. HEENT: Normocephalic, EOMI. Sclerae anicteric. Oral mucosa moist. Neck: Supple. Respiratory: Air entry is better today. No wheezing. Cardiovascular: Regular rate and rhythm. Gastrointestinal: Abdomen is soft, morbidly obese, nontender, and nondistended with positive bowel sounds. Skin: Warm and dry. Extremities: Peripheral pulses intact. No edema or pain to palpation. Neurological: Awake and alert. Answering questions appropriately. No focal neurologic deficits noted. Psychiatric: Pleasant and cooperative with normal mood and affect. Judgment and insight intact. Neuro: Cranial nerves: Yes Normal hearing present DS: Data Data Completed and Pending Labs on day of discharge: Labs from last 24 hours 03/28/21 03/27/21 03/27/21 07:53 21:10 17:26 WBC RBC Hgb Hct MCV
== END 2021-03-28 09:55 | disposition home or self-care (01) | DRG 137 ==
LOC: ANHED 07:00 → ANH3MEDSUR 08:44
PROVIDERS: Emergency Medicine; Internal Medicine; Physician Assistant; Admitting Provider Family Medicine; Emergency Provider Emergency Medicine; Visit Provider Nurse Practitioner
DX: U07.1 COVID-19 (principal); J12.82 Pneumonia due to coronavirus disease 2019; J96.01 Acute respiratory failure with hypoxia; E11.9 Type 2 diabetes mellitus without complications; E66.01 Morbid (severe) obesity due to excess calories; Z68.43 Body mass index [BMI] 50.0-59.9, adult
CPT/HCPCS: 36415; 36600; 71045; 80053; 81001; 82565; 82728; 82805; 82948; 83036; 83605; 83615; 83735; 83880; 84443; 84460; 85025; 85027; 85055; 85610; 85730; 86140; 87040; 87086; 94618; 94640; 94667; 96361; 96365; 96375; 99285; A9270; C9803; G0379; J0456; J0696; J1100; J1650; J1815; J7030; J7120; U0003; U0005